=== PATIENT | female | born 1990 | race Two or more races ===

== ENCOUNTER 2017-03-05 04:01 | Emergency (ER) | payer MEDICAID ==
--- NOTE | 2017-03-05 04:16 | ED Physician Chart ---
Chief Complaint/HPI - Patient Information Date Seen:: 03/05/17 Time Seen:: 04:02 Chief Complaint:: dysuria History of Present Illness:: 26-year-old female complains of acute, constant, worsening, severe, 10 out of 10 , burning on urination since Monday. Has associated caught his cheeselike vaginal discharge. She denies numbness, tingling, or gross hematuria, gross blood in stool, abdominal pain, cramping, nausea, vomiting, fevers, chest pain, palpitations. Allergies:: Allergies Allergy/AdvReac Type Severity Reaction Status Date / Time MDX Cephalexin [From Keflex] Allergy Verified 12/24/12 14:30 Historian:: Patient Review:: Nurse's Note Reviewed Review of Systems - Review of Systems Other: Complete system review otherwise unremarkable except as noted in history of present illness. Past Medical History - Past Medical History Past Medical History: Asthma/COPD Family History: None Social History: Non Smoker, No Alcohol, No Drug Use, Employed Surgical History: None Psychiatricy History: None Medication: Reviewed Family Medical History - Family Member Mother Ethnicity: Living Status: Still Living Hx Family Cancer: No Hx Family Coronary Artery Disease: No Hx Family Congestive Heart Failure: No Hx Family Hypertension: No Hx Family Diabetes: Yes Physical Exam - Physical Examination Other:: INITIAL VITAL SIGNS: Reviewed by me GENERAL: Alert and interactive. No acute distress HEAD: Head is normocephalic and atraumatic EYES: EOMI. PERRL. No scleral icterus. No conjunctival injection ENT: Moist mucous membranes. NECK: Supple. No masses. Full range of motion RESPIRATORY: No tachypnea. Clear breath sounds bilaterally. No wheezing, rales, or rhonchi CV: Regular rate and rhythm. No murmurs, rubs, or gallops ABDOMEN: Soft, non-distended, non-tender. No guarding. No rebound. No masses. EXTREMITIES: No deformity. No cyanosis. No edema. SKIN: Warm and dry. No obvious rashes. NEUROLOGIC: Alert and oriented. Face is symmetric. Speech is normal. Moves all extremities equally. Motor and sensory distally intact. Labs/Radiology/EKG Results - Lab Results Results: Lab Results 03/05/17 03/05/17 Range/Units 04:00 04:00 Urine Source CLEAN C Urine Color YELLOW Urine Clarity HAZY (CLEAR) Urine pH 5.5 Ur Specific [place] 1.025 (1.005-1.030) Urine Protein 30 H (NEGATIVE) mg/dL Urine Glucose (UA) NEGATIVE (NEGATIVE) mg/dL Urine Ketones NEGATIVE (NEGATIVE) mg/dL Urine Blood TRACE (NEGATIVE) Urine Nitrate NEGATIVE (NEGATIVE) Urine Bilirubin NEGATIVE (NEGATIVE) Urine Urobilinogen 0.2 (0.2 - 1.0) E.U./dL Ur Leukocyte Esterase LARGE H (NEGATIVE) Urine RBC 0-2 (0-5) /hpf Urine WBC 10-25 H (0-5) /hpf Ur Epithelial Cells MODERATE (FEW) /lpf Urine Bacteria MODERATE (NONE SEEN) /hpf Urine Test NEGATIVE ED Septic Shock - . Is Septic Shock (SBP<90, OR Lactate>4 mmol\L) present?: No Reassessment (Disposition) - Reassessment Reassessment:: 26-year-old female presents with burning on urination since Monday. Symptoms are worsening. UA consistent with UTI. Also she is concerned about having decreased infection. We did give prescription for Macrobid and Diflucan. Recommend follow-up with primary care wanted to days. Return precautions were given. Patient says she understands and agrees with the plan. Reassessment Condition:: Improved - Diagnosis Diagnosis:: Acute dysuria due to Acute urinary tract infection, side unspecified, with hematuria - Aftercare/Follow up Instructions Aftercare/Follow-Up Instructions:: Counseled pt regarding lab results/diagnosis & need follow up, Refer to Discharge Instructions - Patient Disposition Discharge/Transfer:: Home Time:: 04:19 Condition at Disposition:: Improved ED Discharge Plan - Patient Disposition Admit/Discharge/Transfer: PT DISCHARGED HOME Condition at Disposition: Improved Instructions: Urinary Tract Infection
[2017-03-05 04:29] LABS: URINE BILIRUBIN NEGATIVE (NEGATIVE); URINE BLOOD TRACE (NEGATIVE); URINE COLOR YELLOW; URINE GLUCOSE (UA) NEGATIVE (NEGATIVE); URINE KETONE NEGATIVE (NEGATIVE)
[2017-03-05 04:30] LABS: URINE PH 5.5; URINE PROTEIN 30 mg/dL (NEGATIVE); URINE RBC 0-2 /hpf (0-5); URINE UROBILINOGEN 0.2 E.U./dL (0.2 - 1.0)
[2017-03-05 04:31] LABS: URINE BACTERIA MODERATE /hpf (NONE SEEN); URINE EPITHELIAL CELLS MODERATE /lpf (FEW)
[2017-03-05 04:34] VITALS: BP 119/75
== END 2017-03-05 04:42 | disposition home or self-care (01) ==
LOC: ER 04:01
DX: N39.0 Urinary tract infection, site not specified (principal); R31.9 Hematuria, unspecified; J44.9 Chronic obstructive pulmonary disease, unspecified; J45.909 Unspecified asthma, uncomplicated; Z88.1 Allergy status to other antibiotic agents
CPT/HCPCS: 81001-TC; 81025-TC; 87086-90; Z7502

== ENCOUNTER 2017-03-06 10:01 | Emergency (ER) | payer MEDICAID ==
[2017-03-06] MEDS ORDERED: Azithromycin 500 MG in Sodium Chloride 0.9% 250 ML IV ONE (10:05)
[2017-03-06] MEDS ORDERED: Sodium Chloride 0.45% 1,000 ML IV ONE (10:08)
--- NOTE | 2017-03-06 10:26 | ED Physician Chart ---
Chief Complaint/HPI - Patient Information Date Seen:: 03/06/17 Time Seen:: 10:14 Chief Complaint:: bladder area pain History of Present Illness:: This is a 26 yo female who was treated in this er for a uti but states that she is not feeling better. she admits to painful urination, painful bladder area, fever, nausea and vomiting. she denies . Allergies:: Allergies Allergy/AdvReac Type Severity Reaction Status Date / Time cephalexin [From Keflex] Allergy Verified 03/05/17 04:38 Vitals:: Vital Signs - 8 hr 03/06/17 10:11 Temp 99.7 F HR 133 RR 22 BP 148/86 O2 Sat % 99 Historian:: Patient Review:: Nurse's Note Reviewed Review of Systems - Review of Systems General/Constitutional: Fever, No chills, No weight loss, No weakness, No diaphoresis, No edema, No loss of appetite Skin: No skin lesions, No rash, No bruising Head: No headache, No light-headedness Eyes: No loss of vision, No pain, No diplopia ENT: No earache, No nasal drainage, No sore throat, No tinnitus Neck: No neck pain, No swelling, No thyromegaly, No stiffness, No mass noted Cardio Vascular: No chest pain, No palpitations, No PND, No orthopnea, No edema Pulmonary: No SOB, No cough, No sputum, No wheezing GI: Nausea, Vomiting, No diarrhea, Pain, No melena, No hematochezia, No constipation, No hematemesis G/U: Dysuria, No frequency, No hematuria Musculoskeletal: No bone or joint pain, No back pain, No muscle pain Endocrine: No polyuria, No polydipsia Psychiatric: No prior psych history, No depression, No anxiety, No suicidal ideation Hematopoietic: No bruising, No lymphadenopathy Allergic/Immuno: No urticaria, No angioedema Neurological: No syncope, No focal symptoms, No weakness, No paresthesia, No headache, No seizure, No dizziness, No confusion, No vertigo Past Medical History - Past Medical History Obtainable: Yes Past Medical History: No significant medical hx Family History: None Social History: Non Smoker, No Alcohol, No Drug Use Surgical History: None Psychiatricy History: None Medication: Reviewed Family Medical History - Family Member Mother History Unknown: Yes Ethnicity: Living Status: Still Living Hx Family Cancer: No Hx Family Coronary Artery Disease: No Hx Family Congestive Heart Failure: No Hx Family Hypertension: No Hx Family Diabetes: Yes Physical Exam - Physical Examination General/Constitutional: Awake, Well-developed, well-nourished, Alert, No distress, GCS 15, Non-toxic appearing, Ambulatory Head: Atraumatic Eyes: Lids, conjuctiva normal, PERRL, EOMI Skin: Nl inspection, No rash, No skin lesions, No ecchymosis, Well hydrated, No lymphadenopathy ENMT: External ears, nose nl, Nasal exam nl, Lips, teeth, gums nl Neck: Nontender, Full ROM w/o pain, No JVD, No nuchal rigidity, No bruit, No mass, No stridor Respiratory: Nl effort/Exclusion, Clear to Auscultation, No Wheeze/Rhonchi/Rales Cardio Vascular: RRR, No murmur, gallop, rubs, NL S1 S2 GI: No tenderness/rebounding/guarding, No organomegaly, No hernia, Normal BS's, Nondistended, No mass/bruits, No McBurney tenderness Other GI comments:: generalized lower abdominal tenderness with rebound. : No CVA tenderness Extremities: No tenderness or effusion, Full ROM, normal strength in all extremities, No edema, Normal digits & nails Neuro/Psych: Alert/oriented, DTR's symmetric, Normal sensory exam, Normal motor strength, Judgement/insight normal, Mood normal, Normal gait, No focal deficits Misc: normal gait, Normal back, No paraspinal tenderness Labs/Radiology/EKG Results - Lab Results Results: Abnormal Lab Results 03/06/17 03/06/17 03/06/17 10:35 10:35 10:35 WBC 11.8 H RBC 4.18 Hgb 11.3 L Hct 33.1 L MCV 79.1 L MCH 27.0 MCHC Differential 34.2 RDW 13.8 Plt Count 202 D MPV 8.8 Neutrophils % 66.3 Lymphocytes % 25.6 Monocytes % 7.6 Eosinophils % 0.2 Basophils % 0.3 Sodium 132 L Potassium 3.5 Chloride 105 Carbon Dioxide 21.6 Anion Gap 8.9 BUN 5 L Creatinine 0.6 Est GFR ( Amer) > 60.0 Est GFR (Non-Af Amer) > 60.0 BUN/Creatinine Ratio 8.3 Glucose 90 Calcium 9.1 Total Bilirubin 0.7 AST 18 ALT 20 Alkaline Phosphatase 47 Total Protein 7.3 Albumin 3.9 Globulin 3.4 Albumin/Globulin Ratio 1.2 TSH 0.91 Urine Source Urine Color Urine Clarity Urine pH Ur Specific [place] Urine Protein Urine Glucose (UA) Urine Ketones Urine Blood Urine Nitrate Urine Bilirubin Urine Urobilinogen Ur Leukocyte Esterase Urine RBC Urine WBC Ur Epithelial Cells Urine Bacteria RPR 03/06/17 03/06/17 10:35 10:55 WBC RBC Hgb Hct MCV MCH MCHC Differential RDW Plt Count MPV Neutrophils % Lymphocytes % Monocytes % Eosinophils % Basophils % Sodium Potassium Chloride Carbon Dioxide Anion Gap BUN Creatinine Est GFR ( Amer) Est GFR (Non-Af Amer) BUN/Creatinine Ratio Glucose Calcium Total Bilirubin AST ALT Alkaline Phosphatase Total Protein Albumin Globulin Albumin/Globulin Ratio TSH Urine Source CLEAN C Urine Color YELLOW Urine Clarity SLIGHTLY CLOUDY Urine pH 6.0 Ur Specific [place] 1.025 Urine Protein 30 H Urine Glucose (UA) NEGATIVE Urine Ketones Urine Blood SMALL H Urine Nitrate NEGATIVE Urine Bilirubin SMALL H Urine Urobilinogen 1.0 Ur Leukocyte Esterase LARGE H Urine RBC 2-5 Urine WBC 25-50 H Ur Epithelial Cells MANY Urine Bacteria MANY RPR NONREACTIVE ED Septic Shock - . Is Septic Shock (SBP<90, OR Lactate>4 mmol\L) present?: No - <6hrs of presentation: Vital Signs: Vital Signs - 8 hr 03/06/17 10:11 Temp 99.7 F HR 133 RR 22 BP 148/86 O2 Sat % 99 Reassessment (Disposition) - Aftercare/Follow up Instructions Aftercare/Follow-Up Instructions:: Counseled pt regarding lab results/diagnosis & need follow up, Refer to Discharge Instructions, Counseled pt & family regarding lab results/diagnosis & need follow up - Patient Disposition Discharge/Transfer:: Home ED Discharge Plan - Patient Disposition Admit/Discharge/Transfer: PT DISCHARGED HOME Condition at Disposition: Improved Prescriptions: Ciprofloxacin HCl [Cipro] 250 mg PO BID #1 tablet Ibuprofen [Motrin] 600 mg PO Q8H PRN #24 tab PRN Reason: pain Instructions: Urinary Tract Infection, [id number], Candidal Vulvovaginitis, [id number] Accepting Physician: Simba Dan [Active] - 1-3 Days
[2017-03-06 11:05] LABS: ALB/GLOB RATIO 1.2 (1.0-1.8); ALKALINE PHOSPHATASE 47 U/L (34-104); ANION GAP 8.9 (7.0-16.0); BILIRUBIN,TOTAL 0.7 mg/dL (0.3-1.0); BUN - UREA NITROGEN 5 mg/dL (7-25); BUN/CREATININE RATIO 8.3; CALCIUM SERUM 9.1 mg/dL (8.6-10.3); CARBON DIOXIDE 21.6 mEq/L (21.0-31.0); CHLORIDE 105 mEq/L (98-107); CREATININE - SERUM 0.6 mg/dL (0.6-1.2); GLUCOSE 90 mg/dL (70-105); POTASSIUM SERUM 3.5 mEq/L (3.5-5.1); SGOT 18 U/L (13-39); SGPT/ALT 20 U/L (7-52); SODIUM SERUM 132 mEq/L (136-145)
[2017-03-06 11:12] LABS: % BASOPHILS 0.3 % (0.0-2.0); % EOSINOPHILS 0.2 % (0.0-5.0); % LYMPHOCYTES 25.6 % (20.0-50.0); % MONOCYTES 7.6 % (2.0-10.0); % NEUTROPHILS 66.3 % (40.0-80.0); HEMATOCRIT 33.1 % (35.0-45.0); HEMOGLOBIN 11.3 gm/dL (11.7-15.5); MEAN CELL VOLUME 79.1 fl (81-100); MEAN CORPUSCULAR HGB CONC 34.2 pg (28.0-36.0); MEAN PLATELET VOLUME 8.8 fl; NEUTROPHILE ABSOLUTE 7.9 Th/cmm (1.8-8.0); RED BLOOD COUNT 4.18 Mil/cmm (3.80-5.10); RED CELL DISTRIBUTION WIDTH 13.8 % (11.5-20.0); WHITE BLOOD COUNT 11.8 Th/cmm (4.8-10.8)
[2017-03-06 11:17] LABS: PLATELET COUNT 202 Th/cmm (150-400)
[2017-03-06 11:22] LABS: URINE COLOR YELLOW
[2017-03-06 11:23] LABS: URINE BILIRUBIN SMALL (NEGATIVE); URINE GLUCOSE (UA) NEGATIVE (NEGATIVE)
[2017-03-06 11:24] LABS: URINE BLOOD SMALL (NEGATIVE); URINE PROTEIN 30 mg/dL (NEGATIVE)
[2017-03-06 11:32] LABS: URINE BACTERIA MANY /hpf (NONE SEEN); URINE EPITHELIAL CELLS MANY /lpf (FEW); URINE WBC 25-50 /hpf (0-5)
== END 2017-03-06 12:15 | disposition home or self-care (01) ==
LOC: ER 10:01
DX: R30.9 Painful micturition, unspecified (principal); R11.2 Nausea with vomiting, unspecified; R50.9 Fever, unspecified; Z88.1 Allergy status to other antibiotic agents
CPT/HCPCS: 99284; 96374; 36415; 84443; 86592; 85025; 87086; 81001; 80053; 87040 ×2; J1885; J0456; J7030; Z7502

== ENCOUNTER 2017-06-01 14:19 | Emergency (ER) | payer MEDICAID ==
--- NOTE | 2017-06-01 14:47 | ED Physician Chart ---
ED Chief Complaint/HPI - Patient Information Date Seen:: 06/01/17 Time Seen:: 14:30 Chief Complaint:: headache History of Present Illness:: Patient developed an occipital headache 3 days ago which has now become diffuse over her entire head. Headache was of gradual onset. She vomited once just now in emergency department. This is the patient's worst headache ever. She has a history of headaches of a similar pattern (diffuse, not unilateral) diagnosis migraines. Allergies:: Allergies Allergy/AdvReac Type Severity Reaction Status Date / Time cephalexin [From Keflex] Allergy Verified 03/05/17 04:38 Historian:: Patient ED Review of Systems - Review of Systems General/Constitutional: No fever, No chills Skin: No skin lesions Head: Headache Eyes: No loss of vision, Pain, Other (photophobia) ENT: No earache, No nasal drainage, No sore throat Neck: No neck pain, No thyromegaly Cardio Vascular: No chest pain, No palpitations Pulmonary: No SOB GI: No nausea, No vomiting G/U: No dysuria, No frequency, No nacturia Musculoskeletal: No bone or joint pain, No back pain, No muscle pain Endocrine: No polyuria, No polydipsia Psychiatric: No prior psych history, No depression Hematopoietic: No bruising, No lymphadenopathy Allergic/Immuno: No urticaria Neurological: No syncope, Headache Family Medical History - Family Member Mother History Unknown: Yes Ethnicity: Living Status: Still Living Hx Family Cancer: No Hx Family Coronary Artery Disease: No Hx Family Congestive Heart Failure: No Hx Family Hypertension: No Hx Family Diabetes: Yes ED Assessment - Assessment General Assessment: At 1520 the occipital component of the patient's headache is now improved. I suggested to her that if she takes Imitrex right at the onset of the headache it will be more effective. Patient has already had her current headache for 3 days. ED Septic Shock - . Is Septic Shock (SBP<90, OR Lactate>4 mmol\L) present?: No ED Reassessment (Disposition) - Reassessment Reassessment Condition:: Improved - Diagnosis Diagnosis:: Headache - Aftercare/Follow up Instructions Aftercare/Follow-Up Instructions:: Refer to Discharge Instructions Medication Prescribed:: Zofran 4 mg oral dissolving tablet #10 to take one every 4-6 hours as necessary for nausea and vomiting; Imitrex 100 mg tablets #9 to take one half to one every 24 hours when necessary headache. - Patient Disposition Discharge/Transfer:: Home Condition at Disposition:: Stable, Improved
== END 2017-06-01 15:40 | disposition home or self-care (01) ==
LOC: ER 14:19
DX: R51 Headache (principal)
CPT/HCPCS: 99283; 96372; Q0162; J3030; Z7502